=== PATIENT | female | born 1985 | race Caucasian/White ===

== ENCOUNTER 2017-11-21 09:47 | Emergency (ER) | payer MEDICAID ==
[~2017-11-21] VITALS: Ht 160 cm; Wt 67.0 kg
[2017-11-21] MEDS ORDERED: IBUPROFEN 800MG TABLET PO ONE (12:30)
[2017-11-21 13:43] VITALS: BP 130/62
== END 2017-11-21 13:47 | disposition home or self-care (01) ==
LOC: ER 09:47
DX: M25.551 Pain in right hip (principal); I10 Essential (primary) hypertension; Z98.890 Other specified postprocedural states
CPT/HCPCS: 73502; 81025; 99284